=== PATIENT | female | born 1990 | race Caucasian/White ===

== ENCOUNTER → 2020-08-05 18:34 | Outpatient (ROUT) | payer OTHER, SELFPAY | PROVIDERS: Visit Provider Nurse Practitioner Obstetrics & Gynecology | DX: Z36.85 Encounter for antenatal screening for Streptococcus B (principal); Z3A.36 36 weeks gestation of pregnancy | CPT/HCPCS: 87081 ==

== ENCOUNTER 2020-08-24 19:14 | Inpatient (IN) | payer OTHER, SELFPAY ==
--- NOTE | 2020-08-24 19:24 | PM.OBHP.1 ---
OB HPI Date/Time Date of admission: 08/24/20 Date Patient Seen: 08/24/20 Time Patient Seen: 19:20 History of Present Condition Chief complaint: observation of labor : 2 Para: 1 Estimated Date of Delivery: 09/01/20 Estimated Gestational Age (weeks): 38.6wk Narrative: Nuvia Mccormick is a 30 year old female who presents in spontaneous active labor. Contractions started this afternoon and have slowly progressed in frequency and intensity. Now breathing through strong contractions every 2-3 minutes. No LOF or VB. Uncomplicated care with CNM. Desires unmedicated, low intervention . Supportive present. History of Present care: good care, initiated at week # (9wks) and number of visits (10) Dating criteria: LMP confirmed by 1st trimester US (LMP: 11/26/19) Ultrasounds: normal mid trimester US Obstetrical complications: none Medical complications: none Preadmission Labs Blood type: A (+) positive -: Antibody screen: negative, GBS status: negative, HBsAG: negative, HIV: negative and RPR/VDLR: negative -: Chlamydia screen: not detected and Gonorrhea screen: not detected -: Rubella: immune HCT: 33.0 HCAB: negative PAP: Normal Cell-free DNA: Negative/female 1 hr GTT: 96 Prior (ies) History: 11/11/15 NSVB @ 39wks 6lb9oz male, GHTN, unmedicated Evaluation Evaluation Baseline heart rate: 145 Variability: Moderate (11-25) monitor accelerations: Absent monitor decelerations: Absent Contraction Frequency (minutes): 3 Uterine Contraction Intensity: Moderate Comments: CE declined by patient who appears to be in active labor. REPLACED BY [facility] Medical History Depression (Acute) Family History Mother Diabetes mellitus Social History (Updated 08/24/20 @ 22:48 by Aintha Miranda CNM) marital status: number of children: 1 household members: spouse lives independently: Yes housing: house education level: college Meds Home Medications and Allergies Home Medications Medication Instructions Recorded Confirmed Type cephalexin [Keflex] 500 mg PO QID #28 cap 01/26/17 Rx Allergies Allergy/AdvReac Type Severity Reaction Status Date / Time Penicillins [PENICILLINS] Allergy Mild Unverified 02/23/18 12:33 Tetracyclines [TETRACYCLINES] Allergy Mild Unverified 02/23/18 12:33 Sulfa (Sulfonamide Allergy Unknown Unverified 02/23/18 12:33 Antibiotics) [SULFA (SULFONAMIDE ANTIBIOTICS)] Review of Systems Review of Systems ROS: Yes All systems reviewed with the patient and are negative except as otherwise documented Exam Vital Signs (past 8 hours): BP 123/83, HR 101 bpm, T 36.1 C Resp Effort & Inspection: normal respiratory effort Auscultation: clear to auscultation bilaterally Cardio Rate: regular rate Rhythm: regular rhythm Heart Sounds: S1 normal and S2 normal OB/External & Speculum: deferred Presentation: vertex Objective Labs Result Diagrams: 08/24/20 19:50 Assessment and Plan Assessment and Plan Assessment and Plan narrative: A: Primip, term Presumed active labor No indication for GBS prophylaxis Reassuring FHR P: Admit routine orders with CBC, type and screen, saline lock IV Labor support PRN Reassess in 4 hours or sooner Continuous FHR monitoring, may switch to intermittent after 20 min of Category I
[2020-08-24 20:01] LABS: Add Manual Diff / Slide Review NO; Basophils Absolute Auto 0 /uL (0-100); Basophils Percent Auto 0.2 % (0-2); Eosinophils Absolute Auto 100 /uL (0-450); Eosinophils Percent Auto 0.7 % (2-4); Hematocrit 39.3 % (36-46); Hemoglobin 12.9 g/dL (12.0-16.0); Lymphocytes Absolute Auto 2100 /uL (1100-4500); Lymphocytes Percent Auto 17.4 % (25-40); Mean Corpuscular HGB Conc 32.8 % (30-36); Mean Corpuscular Hemoglobin 30.5 PG (26-34); Monocytes Absolute Auto 900 /uL (0-900); Neutrophils Absolute Auto 9200 /uL (1500-7000); Neutrophils Percent Auto 74.7 % (50-75); Platelet Count 191 X10^3/uL (150-400); Red Blood Cell Count 4.22 X10^6/uL (4.0-5.2); Red Cell Distribution Width 13.9 % (11.6-14.8); White Blood Cell Count 12.3 X10^3/uL (4.5-11.0)
[2020-08-24 20:23] LABS: COVID19 -Nasal RAPID Negative (Negative)
--- NOTE | 2020-08-24 22:21 | P.PCNOB_ITS ---
Labor & Delivery Delivery date: 08/24/20 Intrapartal events: None Cervical ripening method: none Induction method: none Delivery monitor: external FHT and external uterine Route of delivery: L&D Laceration Description: None Estimated blood loss (mL): 200 Anesthesia type: None [place] Baby 1: Infant gender: Female Presentation: vertex Placenta delivery description: Spontaneous cord vessel description: 3 Vessels score (1 min): 8 score (5 min): 9 Narrative: Nuvia labored well unmedicated in the tub and on hands and knees in the room. She began to push with good maternal effort and had a sponta neous urge to bear down. She pushed in a variety of positions. FHTs remained reassuring by intermittent auscultation. NSVB of viable female Alicia. Birthed in left side-lying position. Nuchal x 1 reduced. Shoulders delivered with ease, no dystocia. placed on maternal abdomen for drying and skin to skin. 30 units of pitocin in 500 mL LR started at 300 mL/hr for AMTSL. Cord was double clamped and cut after cessation of pulses by SNM. Hospital cord blood sample collected. Placenta delivered with gentle traction and single maternal push. Fundus massage firm. Minimal bleeding. Inspection revealed intact perineum and vagina. QBL 200 mL. Mom and baby skin to skin and initiated when I left the room. Plan for aftercare: P: Routine PP care. Anticipate d/c in 18 hours.
[2020-08-24] MEDS: KETOROLAC 30 MG/ML VIAL IV (22:47)
[2020-08-24 23:54] VITALS: BP 129/64
[2020-08-25] MEDS: IBUPROFEN 600 MG TABLET PO ×2 (04:53→09:30)
[2020-08-25] MEDS: DOCUSATE 100 MG CAPSULE PO (09:29)
[2020-08-25] MEDS: DERMOPLAST SPRAY 20% 60 ML 1 SPRAY TOP (09:29)
[2020-08-25] MEDS: PRENATAL VIT,CALC/IRON/FOLIC 1 TABLET 1 TAB PO (09:29)
[2020-08-25] MEDS: LANOLIN OINT 7 GM 1 APPLIC TOP (09:29)
[2020-08-25 13:19] VITALS: BP 123/74; PULSE 86; RESP 16; TEMP 36.8
--- NOTE | 2020-08-25 17:05 | P.DS_ITS ---
Discharge Providers Provider Date of admission: 08/24/20 19:14 Discharge Date: 08/25/20 Consults: 08/25/20 22:18 Consult to [facility] [employer] [facility] [employer] [facility] Routine Comment: Discharge provider: Anitha Miranda CNM Summary Discharge Diagnosis (1) Encounter for full-term uncomplicated delivery: Status: Acute Problem Details: Patient sitting up in bed, holding her daughter, eager for discharge to home. Voiding and ambulating independently. Has showered and had a BM without discomfort. well independently. Minimal pain well controlled w/ PO meds. Bleeding is minimal without clots. , Kenny, is present and supportive. Time Spent with Patient Time attestation: Total time spent providing and/or coordinating discharge services: Objective Labs Result Diagrams: 08/24/20 19:50 Labs: Laboratory Results - last 24 hr 08/24/20 08/24/20 08/24/20 19:26 19:50 19:50 WBC 12.3 H RBC 4.22 Hgb 12.9 Hct 39.3 MCV 93.0 MCH 30.5 MCHC 32.8 RDW 13.9 Plt Count 191 Neut % (Auto) 74.7 Lymph % (Auto) 17.4 L [place] % (Auto) 7.0 Eos % (Auto) 0.7 L Baso % (Auto) 0.2 Neut # (Auto) 9200 H Lymph # (Auto) 2100 [place] # (Auto) 900 Eos # (Auto) 100 Baso # (Auto) 0 COVID-19 PCR Negative Blood Type A Positive Antibody Screen Negative Exam Vital Signs (past 8 hours): - 08/25/20 13:19 Temperature 98.2 F Pulse Rate 86 Respiratory Rate 16 Blood Pressure 123/74 Other: Fundus firm @ u, scant lochia, no clots Psych Appearance: well kempt Speech and Movement: speech and movement normal Affect: normal affect Discharge Plan Discharge Plan Patient Disposition: Home Discharge orders & Medications Prescriptions: New acetaminophen 325 mg Tablet 650 mg PO Q6HR PRN (Reason: Pain, Mild (1-3)) 14 Days Qty: 60 RF: 0 ibuprofen 600 mg Tablet 600 mg PO Q6HR PRN (Reason: Pain, Mild (1-3)) 14 Days Qty: 60 RF: 1 Continued sertraline [Zoloft] 100 mg tablet 100 mg PO Q OTHER DAY RF: 0 Follow up/Referrals: Anitha Miranda CNM [[facility] [employer] [facility] [facility]] - (Follow-up at 2 weeks by Telehealth 09/07/20 @ 1045 Follow-up at 6 weeks in office 10/05/20@ 1045) Diet/Activity/Treatments Diet: Regular Activity: 6 weeks of pelvic rest Skin/Wound/Dressing Care Report to your healthcare provider any signs of infection, such as:: chills, fever, increased pain, unusual drainage and unusual redness Visit Report/Discharge Packet Instructions: DI for Depression Stand Alone Forms: Discharge: Care Visit Report Forms: Patient Portal/API, Stroke Signs & Symptoms Discharge Data Attending Provider: Anitha Miranda Admit Date/Time: 08/24/20 19:14
== END 2020-08-25 18:05 | disposition home or self-care (01) | DRG 807 ==
PROVIDERS: Admitting Provider Nurse Practitioner Obstetrics & Gynecology; Referring Provider Nurse Practitioner Obstetrics & Gynecology; Visit Provider Nurse Practitioner Obstetrics & Gynecology
DX: O77.0 Labor and delivery complicated by meconium in amniotic fluid (principal); Z37.0 Single live birth; Z3A.38 38 weeks gestation of pregnancy; O69.81X0 Labor and delivery complicated by cord around neck, without compression, not applicable or unspecified; Z11.59 Encounter for screening for other viral diseases
CPT/HCPCS: 36415; 59050; 85025; 86850; 86900; 86901; 87635; G0378; G0379; J1885

== ENCOUNTER → 2022-04-07 11:11 | Outpatient (CLI) | payer OTHER, SELFPAY ==
[2022-04-07 18:32] LABS: Add Manual Diff / Slide Review NO; Basophils Absolute Auto 0 /uL (0-100); Basophils Percent Auto 0.7 % (0-2); Eosinophils Absolute Auto 100 /uL (0-450); Hematocrit 38.5 % (36-46); Lymphocytes Absolute Auto 2200 /uL (1100-4500); Lymphocytes Percent Auto 30.4 % (25-40); Mean Corpuscular HGB Conc 33.8 % (30-36); Mean Corpuscular Hemoglobin 30.9 PG (26-34); Mean Corpuscular Volume 91.5 fL (80-100); Monocytes Absolute Auto 600 /uL (0-900); Monocytes Percent Auto 8.7 % (3-14); Neutrophils Absolute Auto 4300 /uL (1500-7000); Neutrophils Percent Auto 58.2 % (50-75); Platelet Count 349 X10^3/uL (150-400); Red Blood Cell Count 4.21 X10^6/uL (4.0-5.2); Red Cell Distribution Width 12.7 % (11.6-14.8); White Blood Cell Count 7.3 X10^3/uL (4.5-11.0)
[2022-04-07 18:36] LABS: Alanine Aminotransferase 17 IU/L (<35); Albumin 4.7 g/dL (3.5-5.0); Albumin Globulin Ratio 1.6 (1.0-2.8); Alkaline Phosphatase 57 U/L (38-126); Aspartate Aminotransferase 21 IU/L (14-36); Bilirubin Total 0.8 mg/dL (0.2-1.3); Blood Urea Nitrogen 9 mg/dL (7-17); Calcium 9.6 mg/dL (8.4-10.2); Carbon Dioxide 31 mmol/L (22-32); Chloride 102 mmol/L (98-107); Estimated Glomerular Filt Rate > 60 mL/min (>60); Globulin 2.9 g/dL (1.7-4.1); Glucose 85 mg/dL (70-100); HEMOLYSIS < 15 (0-50); Potassium 4.2 mmol/L (3.4-5.1); Sodium 141 mmol/L (137-145); Total Protein 7.6 g/dL (6.3-8.2)
== END ==
PROVIDERS: PCP Physician Assistant Medical; Visit Provider Physician Assistant
DX: R53.83 Other fatigue (principal)
CPT/HCPCS: 80053; 85025

== ENCOUNTER → 2024-10-10 13:04 | Outpatient (CLI) | payer OTHER, SELFPAY ==
[2024-10-10 19:23] LABS: Add Manual Diff / Slide Review NO; Basophils Absolute Auto 0 /uL (0-100); Basophils Percent Auto 0.5 % (0-2); Eosinophils Absolute Auto 200 /uL (0-450); Eosinophils Percent Auto 2.6 % (2-4); Hematocrit 40.5 % (36-46); Hemoglobin 13.7 g/dL (12.0-16.0); Lymphocytes Absolute Auto 2200 /uL (1100-4500); Lymphocytes Percent Auto 23.4 % (25-40); Mean Corpuscular HGB Conc 33.8 % (30-36); Mean Corpuscular Hemoglobin 31.2 PG (26-34); Mean Corpuscular Volume 92.4 fL (80-100); Monocytes Absolute Auto 600 /uL (0-900); Monocytes Percent Auto 6.4 % (3-14); Neutrophils Absolute Auto 6200 /uL (1500-7000); Neutrophils Percent Auto 67.1 % (50-75); Platelet Count 317 X10^3/uL (150-400); Red Blood Cell Count 4.39 X10^6/uL (4.0-5.2); Red Cell Distribution Width 12.3 % (11.6-14.8); White Blood Cell Count 9.2 X10^3/uL (4.5-11.0)
[2024-10-10 19:40] LABS: Alanine Aminotransferase 15 IU/L (<35); Albumin 5.1 g/dL (3.5-5.0); Albumin Globulin Ratio 1.7 (1.0-2.8); Alkaline Phosphatase 52 U/L (38-126); Aspartate Aminotransferase 25 IU/L (14-36); BUN Creatinine Ratio 12.9 (6-22); Bilirubin Total 0.6 mg/dL (0.2-1.3); Blood Urea Nitrogen 11 mg/dL (7-17); C-Reactive Protein Quant < 0.5 mg/dL (<1.0); Carbon Dioxide 27 mmol/L (22-32); Chloride 104 mmol/L (98-107); Estimated Glomerular Filt Rate > 60 mL/min (>60); Glucose 104 mg/dL (70-100); HEMOLYSIS < 15 (0-50); Potassium 3.9 mmol/L (3.4-5.1); Sodium 142 mmol/L (137-145); Total Protein 8.1 g/dL (6.3-8.2)
[2024-10-10 20:00] LABS: Thyroid Stimulating Hormone 1.21 uIU/mL (0.47-4.68)
[2024-10-10 20:20] LABS: Erythrocyte Sedimentation Rate 16 MM/HR (0-20)
== END ==
PROVIDERS: Family Provider Advanced Practice Midwife; PCP Family Medicine; Referring Provider Family Medicine; Visit Provider Family Medicine
DX: Z13.0 Encounter for screening for diseases of the blood and blood-forming organs and certain disorders involving the immune mechanism (principal); Z13.1 Encounter for screening for diabetes mellitus; Z13.29 Encounter for screening for other suspected endocrine disorder; H53.9 Unspecified visual disturbance; R51.9 Headache, unspecified
CPT/HCPCS: 80053; 84443; 85025; 85651; 86140